=== PATIENT | male | born 1995 | race Caucasian/White ===

== ENCOUNTER 2017-08-30 16:33 | Emergency (ER) | payer OTHER ==
[2017-08-30 16:41] VITALS: BP 141/90
--- NOTE | 2017-08-30 17:33 | ED ---
Jerome Guerra Angela, scribed for Hema Smalls on 08/30/17 at 1721 . Medical Screening - HPI Summary HPI Summary: This pt is a 21 y/o male presenting to [facility] via police officers for a legal blood draw. safety and security officer reports the pt has been brought in today for suspicion of driving impaired. Pt denies any pain. He denies SOB, chest pain, abd pain. He denies any PMHx. - History of Current Complaint Chief Complaint: EDGeneral Stated Complaint: BLOOD DRAW Time Seen by Provider: 08/30/17 17:13 Onset/Duration: Started Hours Ago, Atraumatic Associated Signs and Symptoms: Negative PMH/Surg Hx/FS Hx/Imm Hx Endocrine/Hematology History: Denies: Hx Diabetes Cardiovascular History: Denies: Hx Hypertension Infectious Disease History: No Infectious Disease History: Denies: Traveled Outside the [place] in Last 30 Days - Family History Known Family History: Negative: Cardiac Disease, Hypertension, Diabetes - Social History Substance Use Type: Reports: None Smoking Status (MU): Never Smoked Tobacco Review of Systems Negative: Fever, Chills Negative: Chest Pain Negative: Shortness Of Breath Negative: Abdominal Pain Negative: Headache All Other Systems Reviewed And Are Negative: Yes Physical Exam - Summary Physical Exam Summary: Appearance: Well appearing, no pain distress Skin: warm, dry, reflects adequate perfusion Head/face: normal Eyes: EOMI, RAJNI ENT: normal Neck: supple, nontender Respiratory: CTA, breath sounds present Cardiovascular: RRR, pulses symmetrical Abdomen: nontender, soft Bowel: present Musculoskeletal: normal, strength/ROM intact Neuro: normal, sensory motor intact, A&Ox3 Triage Information Reviewed: Yes Vital Signs On Initial Exam: Initial Vitals Temp Pulse Resp BP Pulse Ox 98.9 F 88 14 141/90 96 08/30/17 16:38 08/30/17 16:38 08/30/17 16:38 08/30/17 16:38 08/30/17 16:38 Vital Signs Reviewed: Yes Diagnostics - Vital Signs Vital Signs Temp Pulse Resp BP Pulse Ox 08/30/17 16:38 98.9 F 88 14 141/90 96 - Laboratory Lab Statement: Any lab studies that have been ordered have been reviewed, and results considered in the medical decision making process. Course/Dx - Course Assessment/Plan: This pt is a 21 y/o male presenting to [facility] via police officers for a legal blood draw. safety and security officer reports the pt has been brought in today for suspicion of driving impaired. Pt denies any pain. Pt's blood has been draw in the ED. Pt will be discharged with crime prevention police officer. - Diagnoses Provider Diagnoses: Encounter for medical screening examination Discharge - Sign-Out/Discharge Documenting (check all that apply): Discharge/Admit/Transfer - discharge - Discharge Plan Condition: Stable Disposition: HOME Patient Education Materials: Normal Exam (ED) Referrals: Anneliese Crooks MD [Primary Care Provider] - Additional Instructions: Please follow up with your primary care provider in 3 days. RETURN TO THE ED FOR ANY WORSENING SYMPTOMS. The documentation as recorded by the Jerome nicholas Angela accurately reflects the service I personally performed and the decisions made by , Hema Smalls.
== END 2017-08-30 17:30 | disposition home or self-care (01) ==
LOC: ED 16:33
DX: Z04.8 Encounter for examination and observation for other specified reasons (principal)
CPT/HCPCS: 99281

== ENCOUNTER 2023-11-09 19:04 | Inpatient (IN) ==
[2023-11-09 20:29] LABS: ABS Basophils 0.1 10^3/uL (0.0-0.1); ABS Lymphocytes 1.6 10^3/uL (1.0-4.8); ABS Monocytes 0.5 10^3/uL (0.0-1.1); ABS Neutrophils 6.4 10^3/uL (1.5-7.6); ABS Nucleated RBC 0.04 10^3/ul; Eosinophil % 0.3 %; Hematocrit 44.7 % (38-53); Hemoglobin 16.5 g/dL (13.2-16.3); Lymphocyte % 18.7 %; Mean Corpuscular Hemoglobin 33.1 pg (27-33); Mean Corpuscular Hgb Conc 36.9 g/dL (31-36); Mean Corpuscular Volume 89.6 fL (80-97); Mean Platelet Volume 9.2 fL (7.5-11.2); Nucleated Red Blood Cells % 0.4 %/100WBC (0.0-0.8); Platelet Count 236 10^3/uL (150-450); Red Blood Count 4.99 10^6/uL (4.06-5.63); Red Cell Distribution Width 12.6 % (12-17); White Blood Count 8.6 10^3/uL (3.6-10.2)
[2023-11-09 20:30] LABS: Urine Appearance Clear; Urine Bilirubin Negative (Negative); Urine Blood Negative (Negative); Urine Color Light-Yellow; Urine Glucose Negative (Negative); Urine Ketones Negative (Negative); Urine Nitrite Negative (Negative); Urine Protein Negative (Negative); Urine Specific Gravity 1.012 (1.002-1.030); Urine Urobilinogen Negative (Negative)
[2023-11-09 20:57] LABS: ALT 20 U/L (7-52); AST 20 U/L (13-39); Acetaminophen < 15 mcg/mL; Albumin 4.8 g/dL (3.2-5.2); Alcohol, S < 13 mg/dL (<13); Alkaline Phosphatase 69 U/L (35-149); Anion Gap 14 mmol/L (2-16); Blood Urea Nitrogen 17 mg/dL (6-24); CO2 Carbon Dioxide 20 mmol/L (22-32); Calcium 9.7 mg/dL (8.6-10.3); Chloride 104 mmol/L (101-111); Creatinine, Serum 1.19 mg/dL (0.67-1.17); Globulin 2.4 g/dL (2-4); Glucose 131 mg/dL (70-100); Potassium 3.4 mmol/L (3.5-5.0); Salicylate < 2.50 mg/dL (<30); Sodium 138 mmol/L (135-145); Total Bilirubin 0.8 mg/dL (0.2-1.0); Total Protein 7.2 g/dL (6.4-8.9); eGFR CKD-EPI 85.9 (>60)
[2023-11-09 21:04] LABS: Urine Benzodiazepine Screen None Detected (None Detect); Urine Cannabinoids Screen None Detected (None Detect); Urine Opiates Screen None Detected (None Detect)
[2023-11-09 21:25] LABS: TSH Ultra Thyroid Stim Horm 0.72 mcIU/mL (0.34-5.60)
[2023-11-09] MEDS ORDERED: Al Hydrox/Mg Hydrox/Simet LIQ 30 ML UDC PO PRN ×2 (23:53→23:56)
[2023-11-10] MEDS: Vitamin THERAPEUTIC TAB PO SCH (08:34)
[2023-11-10] MEDS ORDERED: Vitamin THERAPEUTIC TAB PO SCH (09:00)
[2023-11-10] MEDS: ADAPALENE 0.1% TOPICAL PRN (21:33)
[2023-11-11 08:58] LABS: HDL Cholesterol 48.5 mg/dL
[2023-11-12 09:53] VITALS: BP 123/86
== END 2023-11-12 11:46 | disposition home or self-care (01) | DRG 756 ==
LOC: ED 19:04 → EDHOLD 11-10 00:02 → BSU 11-10 00:25
PROVIDERS: ADMIT Psychiatry & Neurology Psychiatry; ATTEND Psychiatry & Neurology Psychiatry